=== PATIENT | female | born 1990 | race Caucasian/White ===

== ENCOUNTER 2017-06-11 12:21 | Emergency (ER) | payer MEDICAID ==
[2017-06-11] MEDS ORDERED: Ketorolac 60 MG/2 ML SDV IM ONE (13:20)
[2017-06-11] MEDS ORDERED: Cyclobenzaprine 10 MG Tab PO ONE (13:20)
[2017-06-11] MEDS ORDERED: Cyclobenzaprine 10 MG Tab PO PRN (13:22)
--- NOTE | 2017-06-11 13:30 | EDM.PDOC ---
ED HPI GENERAL MEDICAL PROBLEM - General Chief Complaint: Back Pain or Injury Stated Complaint: BACK PAIN Time Seen by Provider: 06/11/17 13:06 Source of Information: Reports: Patient History Limitations: Reports: No Limitations - History of Present Illness INITIAL COMMENTS - FREE TEXT/NARRATIVE: Patient presents with low back and right thigh pain that started around 1900 last evening. She denies any falls or other trauma. It is painful to walk and difficult to raise right leg up to get in a car or lie down in bed since this started. Right Lower Back Pain Score (Numeric/FACES): 7 - Related Data Allergies Allergy/AdvReac Type Severity Reaction Status Date / Time cauliflower Allergy Hives Verified 06/11/17 12:33 risperidone [From Risperdal] Allergy Hives Verified 06/11/17 12:33 Home Meds: Home Meds Albuterol [Proventil HFA] 1 ampule INH QID PRN 03/04/14 [History] Albuterol [Ventolin HFA] 2 puff INH QID PRN 03/04/14 [History] Budesonide [Pulmicort Flexhaler] 2 inhalation INH BID 03/04/14 [History] Social & Family History - Tobacco Use Smoking Status *Q: Current Every Day Smoker Years of Tobacco use: 10 Packs/Tins Daily: 0.5 Used Tobacco, but Quit: No Second Hand Smoke Exposure: No - Caffeine Use Caffeine Use: Reports: Soda - Alcohol Use Days Per Week of Alcohol Use: 1 Number of Drinks Per Day: 5 Total Drinks Per Week: 5 - Recreational Drug Use Recreational Drug Use: Yes Recreational Drug Type: Reports: Marijuana/Hashish - Living Situation & Occupation Living situation: Reports: with Family ED ROS GENERAL - Review of Systems Review Of Systems: See Below Constitutional: Denies: Fever, Chills, Weakness HEENT: Reports: No Symptoms Respiratory: Denies: Shortness of Breath, Cough Cardiovascular: Denies: Chest Pain, Lightheadedness, Syncope Endocrine: Reports: No Symptoms GI/Abdominal: Denies: Abdominal Pain, Constipation, Diarrhea, Vomiting : Denies: Dysuria, Flank Pain, Frequency Musculoskeletal: Reports: Back Pain, Leg Pain (from low back posterolaterally to knee). Denies: Neck Pain, Shoulder Pain, Arm Pain, Foot Pain Skin: Reports: Bruising (see "rash"), Rash (in mid-thoracic back for several weeks; was told she has eczema; the bruising is just since yesterday but again she denies trauma). Denies: Cyanosis, Jaundice, Mottled, Pallor, Diaphoresis Neurological: Denies: Confusion, Dizziness, Headache, Numbness, Seizure, Syncope , Trouble Speaking Psychiatric: Denies: Agitation, Anxiety, Confusion ED EXAM,LOWER BACK PAIN/INJURY - Physical Exam Exam: See Below Exam Limited By: No Limitations General Appearance: Alert, WD/WN, No Apparent Distress Eye Exam: Bilateral Eye: EOMI, Normal Inspection, PERRL Ears: Normal External Exam, Hearing Grossly Normal Nose: Normal Inspection, No Blood Throat/Mouth: Normal Inspection, Normal Lips, Normal Voice, No Airway Compromise Head: Atraumatic, Normocephalic Neck: Normal Inspection, Supple, Non-Tender, Full Range of Motion Respiratory/Chest: No Respiratory Distress, Lungs Clear, Normal Breath Sounds, No Accessory Muscle Use Cardiovascular: Regular Rate, Rhythm, No Murmur GI/Abdominal: Soft, Non-Tender, No Organomegaly, No Distention Back Exam: Paraspinal Tenderness (upper lumbar with most pain left lateral musculature to palpation). No: CVA Tenderness (L), CVA Tenderness (R) Neurological: Alert, Normal Mood/Affect, Normal Dorsiflexion, Normal Plantar Flexion, No Motor/Sensory Deficits, Oriented x 3, Straight Leg Raise (R) ( difficult due to back pain). No: Straight Leg Raise (L) Psychiatric: Normal Affect, Normal Mood Skin Exam: Warm, Dry, Intact, Normal Color, Rash (mild erythematous rash with old excoriations of mid-thoracic region; no significant bruising evident) Course - Vital Signs Last Recorded V/S: Last Vital Signs Temp 97.1 F 06/11/17 12:27 Pulse 101 H 06/11/17 12:27 Resp 20 06/11/17 12:27 BP 126/89 06/11/17 12:27 Pulse Ox 99 06/11/17 12:27 - Orders/Labs/Meds Orders: Active Orders 24 hr Category Date Time Status Cyclobenzaprine [Flexeril] Med 06/11/17 13:22 Ordered 10 mg PO TID PRN Medication Orders Cyclobenzaprine HCl (Flexeril) 10 mg PO TID PRN PRN Reason: Spasms Last Admin: 06/11/17 13:37 Dose: 10 mg Meds: Medications Generic Name Dose Route Start Last Admin Trade Name Ralf PRN Reason Stop Dose Admin Cyclobenzaprine HCl 10 mg 06/11/17 13:22 06/11/17 13:37 Flexeril PO 10 mg TID PRN Administration Spasms Discontinued Medications Generic Name Dose Route Start Last Admin Trade Name Ralf PRN Reason Stop Dose Admin Cyclobenzaprine HCl 10 mg 06/11/17 13:20 06/11/17 13:37 Flexeril PO 06/11/17 13:21 10 mg ONETIME ONE Administration Ketorolac Tromethamine 60 mg 06/11/17 13:20 06/11/17 13:37 Toradol IM 06/11/17 13:21 60 mg ONETIME ONE Administration - Re-Assessments/Exams Free Text/Narrative Re-Assessment/Exam: 06/11/17 13:48 Discussed findings and treatment plan with patient. Gave Toradol 60 mg IM and Flexeril 10 mg po in ER. Offered to monitor for efficacy but patient wants to get home to her kids and boyfriend. Patient remained stable throughout ER course. Departure - Departure Time of Disposition: 13:44 Disposition: Home, Self-Care 01 Condition: Good Clinical Impression: Lumbar paraspinal muscle spasm Low back pain Qualifiers: Chronicity: acute Back pain laterality: right Sciatica presence: unspecified whether sciatica present Qualified Code(s): M54.5 - Low back pain - Discharge Information Instructions: Muscle Cramps and Spasms, [id number], Piriformis Syndrome, Back Pain, Adult, [id number] Referrals: Payton Mercedes, COMPUTER ENGINEERING TECHNICIAN [Primary Care Provider] - Forms: ED Department Discharge Additional Instructions: 1. Drink 8 cups of water daily; this has been shown to decrease and help prevent back pain. 2. Take Ibuprofen 600 mg 3 times a day for a week then as needed. 3. Take the muscle relaxant as directed. 4. Follow up with your PCP if not improving in 4-5 days; recheck sooner if worsening. - My Orders Last 24 Hours: My Active Orders 06/11/17 13:22 Cyclobenzaprine [Flexeril] 10 mg PO TID PRN - Assessment/Plan Last 24 Hours: My Active Orders 06/11/17 13:22 Cyclobenzaprine [Flexeril] 10 mg PO TID PRN
== END 2017-06-11 14:00 | disposition home or self-care (01) ==
LOC: KA.ED 12:21
DX: M62.830 Muscle spasm of back (principal); M54.5 Low back pain; F17.210 Nicotine dependence, cigarettes, uncomplicated; Z88.8 Allergy status to other drugs, medicaments and biological substances; Z91.018 Allergy to other foods; Z79.899 Other long term (current) drug therapy
CPT/HCPCS: 96372; 99283; A9270-GY; J1885

== ENCOUNTER 2022-02-13 13:38 | Emergency (ER) | payer MEDICAID | END 2022-02-13 14:50 | disposition home or self-care (01) | LOC: KA.ED 13:38 | DX: R51.9 Headache, unspecified (principal); Z88.8 Allergy status to other drugs, medicaments and biological substances; Z79.899 Other long term (current) drug therapy; W10.9XXA Fall (on) (from) unspecified stairs and steps, initial encounter | CPT/HCPCS: 99283; 99284 ==

== ENCOUNTER 2022-11-21 05:51 | Emergency (ER) | payer MEDICAID ==
[2022-11-21] MEDS ORDERED: LORazepam 2 MG/ML SDV IVPUSH ONE (06:05)
[2022-11-21] MEDS ORDERED: Sodium Chloride 0.9% 1,000 ML IV ONE (06:05)
[2022-11-21] MEDS ORDERED: Ondansetron 4 MG/2 ML SDV IVPUSH ONE ×2 (06:06→07:41)
[2022-11-21] MEDS: Sodium Chloride 0.9% 10 ML Syringe FLUSH PRN ×2 (06:11→07:57)
[2022-11-21 07:45] LABS: BASOPHILS ABSOLUTE AUTO 0.01 10^3/uL (0.00-0.10); BASOPHILS PERCENT AUTO 0.1 % (0.0-1.0); EOSINOPHILS ABSOLUTE AUTO 0.01 10^3/uL (0.10-0.30); EOSINOPHILS PERCENT AUTO 0.1 % (1.0-3.0); HEMATOCRIT 41.6 % (37.0-47.0); HEMOGLOBIN 13.8 g/dL (12.0-16.0); IMMATURE GRAN ABSOLUTE AUTO 0.02 10^3/uL (0.00-0.50); IMMATURE GRAN PERCENT AUTO 0.2 % (0.0-5.0); LYMPHOCYTES ABSOLUTE AUTO 0.93 10^3/uL (1.00-4.00); LYMPHOCYTES PERCENT AUTO 7.9 % (20.0-40.0); MEAN CORPUSCULAR HEMOGLOBIN 29.2 pg (27.0-31.0); MEAN CORPUSCULAR HGB CONC 33.2 g/dL (32.0-36.0); MEAN CORPUSCULAR VOLUME 88.1 fL (82.0-92.0); MEAN PLATELET VOLUME 9.9 fL (7.4-10.4); MONOCYTES ABSOLUTE AUTO 0.31 10^3/uL (0.10-0.80); MONOCYTES PERCENT AUTO 2.6 % (2.0-8.0); NEUTROPHILS ABSOLUTE AUTO 10.56 10^3/uL (2.50-7.00); NEUTROPHILS PERCENT AUTO 89.1 % (50.0-70.0); PLATELET COUNT,PLT 288 10^3/uL (150-400); RED BLOOD CELL COUNT 4.72 10^6/uL (3.80-5.50); RED CELL DISTRIBUTION WIDTH 14.9 % (11.5-14.5); WHITE BLOOD CELL COUNT,WBC 11.84 10^3/uL (5.00-10.00)
[2022-11-21 08:01] LABS: ALANINE AMINOTRANSFERASE,ALT 15 U/L (14-63); ALBUMIN 3.48 g/dL (3.40-5.00); ALKALINE PHOSPHATASE 57 U/L (46-116); ANION GAP 13.7 mmol/L (5-15); ASPARTATE AMNIOTRANSFERASE,AST 14 U/L (15-37); BILIRUBIN TOTAL 0.3 mg/dL (0.2-1.0); BLOOD UREA NITROGEN,BUN 8 mg/dL (7-18); CALCIUM 8.3 mg/dL (8.7-10.3); CARBON DIOXIDE,CO2 23.1 mmol/L (21.0-32.0); CHLORIDE,CL 105 mmol/L (98-107); CREATININE 0.64 mg/dL (0.51-1.17); EST CRCL DRUG DOSING (CG) 103.42 mL/min; GLUCOSE RANDOM 120 mg/dL (70-140); POTASSIUM,K 3.8 mmol/L (3.5-5.1); PROTEIN TOTAL,TP 6.6 g/dL (6.4-8.2); SODIUM,NA 138 mmol/L (136-145)
[2022-11-21 08:03] LABS: ESTIMATED GFR 120 mL/min (>=60)
[2022-11-21] MEDS ORDERED: LORazepam 0.5 MG Tab PO ONE (08:39)
[2022-11-21] MEDS ORDERED: Ondansetron 4 MG Tab.DIS PO ONE (08:39)
== END 2022-11-21 08:59 | disposition home or self-care (01) ==
LOC: KA.ED 05:51
DX: R11.2 Nausea with vomiting, unspecified (principal); F32.A Depression, unspecified; F41.9 Anxiety disorder, unspecified; F12.20 Cannabis dependence, uncomplicated; Z88.5 Allergy status to narcotic agent; Z91.018 Allergy to other foods
CPT/HCPCS: 36415; 80053; 84484; 85025; 93005; 96361; 96374; 96375; 96376; 99284; A9270; J2060; J2405; J7030; 93010; J3490